=== PATIENT | female | born 1995 | race Caucasian/White ===

== ENCOUNTER 2016-11-25 10:43 | Emergency (ER) | payer OTHER ==
[2016-11-25 11:18] LABS: BILIRUBIN NEGATIVE (NEGATIVE); BLOOD 3+ Ery/uL (NEGATIVE); CLARITY CLEAR (CLEAR); COLOR YELLOW (YELLOW); GLUCOSE (U) NORMAL (NORMAL); KETONE (U) NEGATIVE (NEGATIVE); LEUKOCYTES NEGATIVE Leu/uL (NEGATIVE); NITRITE NEGATIVE (NEGATIVE); PROTEIN TRACE (LOW) mg/dL (NEGATIVE); SPECIFIC GRAVITY 1.025 (1.001-1.030); UROBILINOGEN 0.2 mg/dL (0.2-1.0)
[2016-11-25 11:32] LABS: BACTERIA 2+; URINARY RBC 20-50
[2016-11-25 11:55] LABS: BASOPHIL 0.2 % (0-2); EOSINOPHIL 0.6 % (0-5); HCT 40.3 % (37.0-47.0); HGB 14.7 g/dl (12.5-16.0); MCH 31.4 pg (25.0-31.0); MCHC 36.5 g/dL (32.0-36.0); MCV 86.1 fL (78.0-100.0); MONOCYTE 5.8 % (0-12); MPV 8.5 fL (6.0-9.5); NEUTROPHIL 86.4 % (41-80); PLT 265 K/uL (150-400); RBC 4.68 M/uL (4.20-5.40); RDW 12.8 % (11.5-14.0); WBC 17.9 K/uL (4.0-10.5)
[2016-11-25 12:07] LABS: ALBUMIN 4.6 g/dL (3.5-5.0); BILIRUBIN - TOTAL 0.6 mg/dL (0.1-1.0); CREATININE 1.1 mg/dL (0.5-1.0); GLOBULIN (CALCULATION) 2.8 g/dL (2.2-4.2); POTASSIUM 3.9 mmol/L (3.5-5.1); TOTAL PROTEIN 7.4 g/dL (6.4-8.3)
== END 2016-11-25 13:52 | disposition home or self-care (01) ==
LOC: FER 10:43
PROVIDERS: Emergency Medicine
DX: N30.01 Acute cystitis with hematuria (principal)
CPT/HCPCS: 36415; 80053; 81001; 85025; J1170; J2405

== ENCOUNTER → 2021-12-03 | Day surgery (SDC) | payer OTHER ==
[~2021-12-03] VITALS: Ht 152.4 cm; Wt 65.8 kg
[~2021-12-03] MED LIST: KETOROLAC TROME10 MG PO
[2021-12-03 06:46] LABS: HCT 39.6 % (37.0-47.0); HGB 13.9 g/dl (12.5-16.0); MCH 30.8 pg (25.0-31.0); MCHC 35.1 g/dL (32.0-36.0); MCV 87.8 fL (78.0-100.0); MPV 8.6 fL (6.0-9.5); RBC 4.51 M/uL (4.20-5.40); RDW 13.5 % (11.5-14.0); WBC 7.4 K/uL (4.0-10.5)
== END | disposition home or self-care (01) ==
LOC: FAS 06:02
PROVIDERS: Specialist
DX: O02.1 Missed abortion (principal)
CPT/HCPCS: 36415; 86850; 86900; 86901; J1100; J1170; J1885; J2250; J2405; J2704; J3010; J7050